=== PATIENT | female | born 1965 | race Caucasian/White ===

== ENCOUNTER 2020-04-09 06:40 | Outpatient (CLI) | payer OTHER ==
[~2020-04-09] VITALS: Ht 157 cm; Wt 57.7 kg
== END 2020-04-09 14:41 | disposition home or self-care (01) ==
LOC: PREOP 06:40
PROVIDERS: ATTEND Obstetrics & Gynecology
DX: Z01.818 Encounter for other preprocedural examination (principal)

== ENCOUNTER 2020-04-16 06:11 | Day surgery (SDC) | payer OTHER ==
[2020-04-16] VITALS (14 sets, daily range): BP systolic 118–159; BP diastolic 62–93
[~2020-04-16] VITALS: Ht 157 cm; Wt 57.7 kg
[2020-04-16] MEDS ORDERED: ceFAZolin INJECTION 1,000 MG in WATER (STERILE) FOR INJECTION 10 ML IV ONE (06:15)
[2020-04-16] MEDS ORDERED: ESTRADIOL VAGINAL CREAM 42.5 GM (ESTRACE) VG ONE (06:34)
[2020-04-16] MEDS ORDERED: LIDOCAINE/EPI 1%-1:100,000 (XYLOCAINE) 20ML ONE (06:35)
[2020-04-16] MEDS ORDERED: BUP/EPI 0.25% 1:200,000 (MARCAINE) 30 ML VIAL ONE (06:35)
[2020-04-16] MEDS: LACTATED RINGERS 1,000 ML IV PRN ×2 (06:46→08:40)
[2020-04-16] MEDS ORDERED: SEVOFLURANE (ULTANE) 15 ML INHAL SOLN ONE ×8 (06:49→10:12)
[2020-04-16] MEDS ORDERED: MIDAZOLAM 2 MG/2 ML (VERSED) VIAL ONE (06:49)
[2020-04-16] MEDS ORDERED: fentaNYL INJECTION 100 MCG/2 ML AMP ONE (06:49)
[2020-04-16] MEDS ORDERED: proPOfol 200 MG/20 ML (DIPRIVAN) VIAL IV ONE (06:50)
[2020-04-16] MEDS ORDERED: NEOSTIGMINE 3 MG/3 ML VIAL ONE (06:50)
[2020-04-16] MEDS ORDERED: LIDOCAINE PF 2% 5 ML (XYLOCAINE) VIAL ONE (06:50)
[2020-04-16] MEDS ORDERED: ROCURONIUM 10 MG/ML 5 ML SYRINGE IV ONE ×2 (06:50→09:33)
[2020-04-16] MEDS ORDERED: ONDANSETRON 4 MG/2 ML (SDV) Z0FRAN ONE ×2 (06:50→10:12)
[2020-04-16] MEDS ORDERED: GLYCOPYRROLATE 0.2 MG/ML (ROBINUL) 2 ML VIAL ONE (06:50)
[2020-04-16] MEDS ORDERED: SCOPOLAMINE 1.5 MG (TRANSDERM-SCOP) PATCH TOP ONE (07:00)
[2020-04-16] MEDS ORDERED: FAMOTIDINE 20MG/2ML IV (PEPCID) IV ONE (07:00)
[2020-04-16] MEDS ORDERED: ONDANSETRON 4 MG/2 ML (SDV) Z0FRAN IV ONE (07:00)
[2020-04-16 07:31] LABS: BASOPHILS % (AUTO) 0 % (0-10); EOSINOPHILS # (AUTO) 0.9 10^3/uL (0.0-0.3); EOSINOPHILS % (AUTO) 9 % (0-10); HEMATOCRIT 44 % (35-52); HEMOGLOBIN 14.8 G/DL (11.5-16.0); LYMPHOCYTES # (AUTO) 3.2 X 10^3 (1.0-4.0); LYMPHOCYTES % (AUTO) 32 % (12-44); MEAN CORPUSCULAR HEMOGLOBIN 30 PG (25-34); MEAN CORPUSCULAR HGB CONC 34 G/DL (32-36); MEAN CORPUSCULAR VOLUME 88 FL (80-99); MEAN PLATELET VOLUME 10.1 FL (7.4-10.4); MONOCYTES # (AUTO) 0.6 X 10^3 (0.0-1.0); MONOCYTES % (AUTO) 6 % (0-12); NEUTROPHILS # (AUTO) 5.2 X 10^3 (1.8-7.8); NEUTROPHILS % (AUTO) 52 % (42-75); PLATELET COUNT 229 10^3/uL (130-400); WHITE BLOOD COUNT 9.9 10^3/uL (4.3-11.0)
--- NOTE | 2020-04-16 07:59 | Progress Note-Pre Operative ---
Pre-Operative Progress Note H&P Reviewed The H&P was reviewed, patient examined and no changes noted. Date Seen by Provider: Apr 16, 2020 Time Seen by Provider: 07:59 Date H&P Reviewed: Apr 16, 2020 Time H&P Reviewed: 07:59 Pre-Operative Diagnosis: uterovaginal prolapse and stress urinary incontinence CAN ROSS MD Apr 16, 2020 07:59
--- NOTE | 2020-04-16 08:01 | Progress Note-Post Operative ---
Post-Operative Progess Note Surgeon (s)/Salesperson Women'S Dresses (s) Surgeon CAN ROSS MD Salesperson Women'S Dresses: Antonia Pre-Operative Diagnosis uterovaginal prolapse and stress urinary incontinence Post-Operative Diagnosis same with pathology pending Procedure & Operative Findings Date of Procedure 04/16/20 Procedure Performed/Findings total laparoscopic hysterectomy with and BSO and with A&P repairs and with enterocele repair and with Dr. Parra performing PVS and cystoscopy Anesthesia Type GETA Estimated Blood Loss Estimated blood loss (mL): 100cc Specimens/Packing Specimens Removed uterus tubes and ovaries Packing: Kerlix gauze in the vagina CAN ROSS MD Apr 16, 2020 08:01
[2020-04-16] MEDS ORDERED: IBUP-1780 PO (08:04)
[2020-04-16] MEDS ORDERED: DOCU-143 PO (08:04)
[2020-04-16] MEDS ORDERED: ESTR2TAB4 PO (08:04)
[2020-04-16] MEDS ORDERED: OXYC1TAB87 PO (08:04)
[2020-04-16] MEDS ORDERED: ESTR1TAB27 PO (08:04)
--- NOTE | 2020-04-16 08:07 | Discharge Inst-Surgical ---
Discharge Inst-Surgical Depart Medication/Instructions New, Converted or Re-Newed RX: RX on Chart Consults/Follow Up Patient Instructions: as directed Orders & Referrals Follow Up Appt: return to clinic with Dr. Tolliver on Saturday, April 18, 2020 at 930 a.m. for staple removal Call to make follow up appt. for patient in 4 weeks. Activity: Rest for 24 hours, than as tolerated. Wound Care: May remove Band-Aid tomorrow. Replace as desired. Keep incisions clean and dry. Wash daily with soap and water. Please call in RX to patient pharmacy. Diet: As tolerated-Clear Liquids only if nauseated. shower or tub bathe as desired. No driving for 24 hours, no alcoholic beverages for 24 hours, and nothing per vagina (no tampons, douching, or intercourse) for 8 weeks. Patient to return to the clinic as soon as possible for: Temperature greater than 101F, Severe Pain, Foul discharge from incision or vagina, Excessive Bleeding (more than a period). Activity Activity as Tolerated: No Diet Discharge Diet: No Restrictions CAN ROSS MD Apr 16, 2020 08:07
[2020-04-16] MEDS ORDERED: BENZOCAINE/MENTHOL (DERMOPLAST) 60 ML CAN TP PRN (08:15)
[2020-04-16] MEDS ORDERED: MEPERIDINE (DEMEROL) INJ 100 MG/ML IM PRN (08:15)
[2020-04-16] MEDS ORDERED: PROMETHAZINE INJ 25 MG/ML (PHENERGAN) AMP IM PRN (08:15)
[2020-04-16] MEDS ORDERED: ONDANSETRON 4 MG/2 ML (SDV) Z0FRAN IVP PRN ×2 (08:15→10:15)
[2020-04-16] MEDS ORDERED: oxyCODONE/APAP 5/325MG (PERCOCET 5) TABLET PO PRN (08:15)
[2020-04-16] MEDS ORDERED: ESTROGENS CONJ INJECTION 25 MG in WATER (STERILE) FOR INJECTION 5 ML IV ONE (08:15)
--- NOTE | 2020-04-16 08:48 | Progress Note-Post Operative ---
Post-Operative Progess Note Surgeon (s)/Education Program Associate (s) Surgeon CLOTILDE DOBBS MD Education Program Associate: MD VANDANA Pre-Operative Diagnosis ROCÍO Post-Operative Diagnosis SAME AND DUS Procedure & Operative Findings Date of Procedure 04/16/20 Procedure Performed/Findings PVS, UD AND CYSTOSCOPY Anesthesia Type GENERAL Estimated Blood Loss Estimated blood loss (mL): NEGLIGIBLE Specimens/Packing Specimens Removed NONE Packing: Kerlix gauze in the vagina CLOTILDE DOBBS MD Apr 16, 2020 08:48
[2020-04-16] MEDS ORDERED: ESTROGENS CONJ IV 25 MG/5 ML (PREMARIN) VIAL ONE (09:38)
[2020-04-16] MEDS ORDERED: WATER (STERILE) FOR INJECTION 10 ML ONE (09:38)
[2020-04-16] MEDS ORDERED: HYDROmorphone 2 MG/ML VIAL (DILAUDID) ONE (09:50)
[2020-04-16] MEDS ORDERED: KETOROLAC 30 MG/ML VIAL ONE (10:09)
[2020-04-16] MEDS ORDERED: HYDROmorphone 2 MG/ML VIAL (DILAUDID) IV ONE (10:15)
[2020-04-16] MEDS ORDERED: KETOROLAC 30 MG/ML VIAL IVP ONE (10:15)
[2020-04-16] MEDS: KETOROLAC 30 MG/ML VIAL IVP SCH ×3 (10:17→21:54)
--- NOTE | 2020-04-16 11:10 | NUR ---
LEEANN MONTGOMERY admitted to room 3306-1 VIA PT BED ACC BY TIANA ERWIN CLAY PUDDLER AFTER A ROBOTIC ASSISTED TOTAL LAPAROSCOPIC HYSTERECTOMY, BILATERAL SALPINGO-OOPHORECTOMY, ANTERIOR AND POSTERIOR REPAIR WITH ENTEROCELE REPAIR BY DR. ROSS AND PUBOVAGINAL SLING, CYSTOSCOPY, AND URETHRAL DILATION BY DR. DOBBS.LEEANN MONTGOMERY introduced to surroundings, call light, bed controls, phone, TV, temperature control, lights, meal times, smoking policy, visitor policy, side rail policy, bathrooms and showers. Patient Rights given to patient in the handbook.
--- NOTE | 2020-04-16 11:15 | NUR ---
ASSESSMENT PERFORMED. VSS. PT VERY DROWSY AND DENIES PAIN. STATES HAS NAUSEA AND DOESN'T WANT TO MOVE. IV PLACED ON PUMP WITH NEW TUBING. BRUISING NOTED AT SITE. HARMAN PATENT TO DD WITH CLOUDY YELLOW URINE. LAP SITES X3 D/I. BANDAID AT UMBILICUS THAT IS NOT A LAP SITE BUT UTILIZED TO INJECT AIR. SPOUSE AT BEDSIDE. ORIENTED TO CALL LIGHT AND MENU. PT TOO DROWSY TO ABSORB INSTRUCTIONS AT THIS TIME. THIGH HI SCDS ON BILATERALLY. SIDE RAILS UP X4. CALL LIGHT PLACED WITHIN REACH.
[2020-04-16] MEDS ORDERED: D5 LR IV SOLUTION 1,000 ML IV ONE (11:27)
--- NOTE | 2020-04-16 11:30 | NUR ---
VAGINAL PACKING INTACT. NO BLEEDING ON TAIL OF PACK. V-PAD DRY. PT SAT UP AND STARTED DRY HEAVING.
--- NOTE | 2020-04-16 11:37 | NUR ---
ZOFRAN [address] ORDER. NO EMESIS BUT DRY HEAVES. WARM BLANKET GIVEN. EXTRA PILLOWS. PT TURNING SELF FROM SIDE TO SIDE.
--- NOTE | 2020-04-16 11:39 | OPERATIVE REPORT ---
DATE OF SERVICE: 04/16/2020 PREOPERATIVE DIAGNOSIS: On my part, stress urinary incontinence. POSTOPERATIVE DIAGNOSES: On my part, stress urinary incontinence and distal urethral stenosis. OPERATION PERFORMED: Pubovaginal sling, urethral dilatation, and cystoscopy. SURGEON: Clotilde Dobbs MD SPECIAL INVESTIGATOR: Jonas Vasques MD ANESTHESIA: General. COMPLICATIONS: None. DESCRIPTION OF PROCEDURE: After Dr. Vasques performed the first part of his surgery that he will dictate and the catheter was inserted, draining clear urine, I went ahead and passed the device on both sides using the described technique. The sling was sitting nicely under the mid urethra with no tension, no twist and passage of a hemostat easily between it and the underlying tissue. I inserted the cystoscope. There was resistance at just proximal to the urethra. I went ahead and dilated that little stricture to #26 easily and the scope was passed easily after that. Cystoscopy was negative. No foreign bodies. Ureteric orifices normal with clear efflux. The sling sitting under the mid urethra. I left the bladder at least half full to remove the cystoscope and performed a Valsalva maneuver manually, it was negative. I went ahead and reinserted the catheter, draining clear fluid. Estimated blood loss negligible and the patient tolerated the procedure and anesthesia well and Dr. Vasques proceeded with rest of his surgery that he will dictate. Job ID: [id number] DocumentID: [id number] Dictated Date: 04/16/2020 09:39:23 Refrigeration Lead Date: 04/16/2020 11:38:58 Dictated By: CLOTILDE DOBBS MD
[2020-04-16] MEDS: D5 LR IV SOLUTION 1,000 ML IV SCH ×2 (12:14→18:42)
--- NOTE | 2020-04-16 13:20 | NUR ---
IV FLUIDS INCREASED FOR FLUID BOLUS R/T DECREASED URINE OUTPUT. PT C/O FEELING LIKE SHE NEEDS TO URINATE. INFORMED OF PACKING MOST LIKELY CAUSING THAT SENSATION.
--- NOTE | 2020-04-16 13:21 | OPERATIVE REPORT ---
DATE OF SERVICE: 04/16/2020 PREOPERATIVE DIAGNOSES: Uterovaginal prolapse and stress urinary incontinence. POSTOPERATIVE DIAGNOSES: Uterovaginal prolapse and stress urinary incontinence. OPERATIVE PROCEDURE: Total laparoscopic hysterectomy with bilateral salpingo-oophorectomy as well as anterior and posterior repairs with enterocele repair and with Dr. Azar performing a pubovaginal sling and cystoscopy as well as a urethral dilation. OPERATIVE DESCRIPTION: With the patient in the supine position under satisfactory general anesthesia, she was repositioned in the dorsal lithotomy position in the [facility] and then prepped and draped in the usual fashion for abdominal and vaginal surgery. Weighted speculum was placed in the posterior fornix of vagina, cervix exposed and grasped anteriorly with single tooth tenaculum. The cervix was actually prolapsed to 2 cm outside the introitus. The cervix was stabilized with a tenaculum. Uterus was sounded to 9 cm with uterine sound. The cervix was serially dilated with Miguel Ángel dilators to accommodate a Ana II manipulator, which was placed using a 6 mm x 8 cm uterine probe and a 30 mm colpotomy ring. Sutures of #1 Vicryl placed at 3 and 9 o'clock position of the cervix to affix the uterus to the manipulator. The uterus was reduced back up into the pelvis with the manipulator. Marquez catheter was placed in the urinary bladder. Tenaculum and speculum were removed and the patient was brought into low dorsal lithotomy position. A 12 mm incision was made 7 cm superior to the umbilicus. Veress needle was placed through that incision. The first attempt with the Veress needle was unsuccessful, so a stab wound was made just superior to the umbilicus. Veress needle was placed there easily and the abdomen insufflated with 2.4 liters of carbon dioxide. A 12 mm Optiview laparoscopic port was then placed through the supraumbilical incision. The abdominal wall was transilluminated and ports of 8 mm were placed through incisions of those sizes 9 cm lateral to the umbilicus, approximately 3-4 cm superior to the umbilicus. All the port sites were infiltrated with 0.25% Marcaine with epinephrine before incision and port placement. The patient was placed in Trendelenburg. The ? Florence column was advanced on the patient and docked. Operative instruments were placed and I retired to the da Florence console. At the console, the pelvis was examined. The uterus was normal in appearance and freely mobile. There was evidence of tubal sterilization bilaterally. The ovaries were atretic appearing. Both ovaries were seemed to peristalse and were well away from the IP ligaments of the uterus. The appendix was identified. It was a normal vermiform appendix. It appeared to be some endometriosis in the ovarian fossae bilaterally. The procedure was initiated by elevating the right tube and ovary and then clamping, cauterizing, dividing the IP ligament. This was continued stepwise across the mesovarium on to the round ligament, the broad ligament and finally down on the cardinal ligament. Same procedure performed on the left, allowing for eventual removal of both tubes and ovaries with the uterus. The anterior lower uterine segment peritoneum was exposed and divided using monopolar kandis in place of the vessel sealer on the right. The bladder was carefully dissected down off the lower uterine segment. The colpotomy incision was then started at 12 o'clock position. That incision was continued circumferentially until the entire colpotomy ring was exposed. This freed the uterus with tubes and ovaries still attached, which was extracted through the vagina. The vaginal cuff was closed with a single suture of V-Loc barbed suture starting from the right angle, continuing in a running and partially running locked manner to the left angle taking care to ensuring inclusion of the uterine vessel pedicles bilaterally. Hemostasis was complete. The bladder peritoneum was reapproximated with the final stitch of the suture with no bleeding, less than 10 mL of blood loss. At this point, the laparoscopic portion of the procedure was halted. The operative instruments were removed under direct vision as were the ports. The abdomen was evacuated of insufflating gas in the process of removing the ports. The skin incisions were stapled after closing the fascia at the supraumbilical incision with [id number]-lv-[id number] suture of 2-0 Vicryl. The patient was brought into low dorsal lithotomy position and the Marquez catheter was removed. Weighted speculum placed in posterior fornix of vagina. The anterior vaginal wall was grasped with two Roc clamps. Vaginal wall was opened in the midline with Metzenbaum scissors. That opening was continued to from 1.5 cm from the urethral meatus to almost the apex of the vagina. The bladder wall was carefully dissected off the muscularis of the vagina back to pubic rami bilaterally. Endopelvic fascia and bladder wall were plicated with 2-0 Vicryl sutures, elevating the bladder and lengthening the urethra. At this point, Dr. Azar assumed care of the patient. I remained to assist. Dr. Azar performed a pubovaginal sling and a cystoscopy. Prior to the cystoscopy, he performed a urethral dilation because were seemed to be a little bit of stenosis of the urethra. He will dictate his portion of the procedure. On completion of his portion of the procedure, I resumed care of the patient, resected redundant anterior vaginal muscularis mucosa and closed the vaginal wall with a running locked suture of 3-0 Vicryl Rapide. Good hemostasis was achieved and good support was evident. Posterior repair was affected by placing Roc clamps on the perineum and the hymenal ring at the 5 and 7 o'clock position and inverted triangle of skin was removed from the perineal body and upright triangle was removed from the posterior vaginal floor. The rectovaginal space was entered in sharply and dissected bluntly to the apex of the vagina where it was explored where an enterocele small one. The enterocele was reduced and then plicated with two 2-0 Vicryl sutures in a pursestring fashion. With the enterocele reduced, the rectovaginal space was obliterated with additional sutures of 2-0 Vicryl and the perineal body was restored with sutures of 2-0 Vicryl. The redundant posterior vaginal muscularis mucosa was resected and the vaginal wall was closed with running locked suture of 3-0 Vicryl. That closure was continued past the hymenal ring and back down onto the perineal body and then back up to the hymenal ring where the suture was tied. Digital rectal exam confirmed no stricture or stenosis of the rectum and no sutures into or through the rectal mucosa. The vaginal vault was examined for hemostasis that being complete, the vagina was filled with Estrace vaginal cream and a pack of Kerlix gauze was placed. The Marquez catheter was left to dependent drainage, it was draining clear yellow urine. Sponge and needle counts were correct. Blood loss was minimal for the hysterectomy and around 100 mL for the anterior and posterior repairs. The patient tolerated the procedure well and was uneventfully awakened from her general anesthesia and transferred to the recovery room in stable condition. Job ID: [id number] DocumentID: [id number] Dictated Date: 04/16/2020 10:08:16 Document Preparation Specialist Date: 04/16/2020 13:20:40 Dictated By: CAN ROSS MD
--- NOTE | 2020-04-16 13:35 | Anesthesia-General Post-Op ---
General Patient Condition Mental Status/LOC: Same as Preop Cardiovascular: Satisfactory Nausea/Vomiting: Absent Respiratory: Satisfactory Pain: Controlled Complications: Absent Post Op Complications Complications None Follow Up Care/Instructions Patient Instructions None needed. Anesthesia/Patient Condition Patient Condition Patient is doing well, no complaints, stable vital signs, no apparent adverse anesthesia problems. No complications reported per nursing. GEN DICKEY CRNA Apr 16, 2020 13:35
--- NOTE | 2020-04-16 13:49 | NUR ---
DR. ROSS NOTIFIED OF PT'S CONTINUES NAUSEA. ORDERED TO REPEAT ZOFRAN.
[2020-04-16] MEDS ORDERED: ONDANSETRON 4 MG/2 ML (SDV) Z0FRAN IVP ONE (14:00)
--- NOTE | 2020-04-16 14:06 | NUR ---
ZOFRAN 12 MG IVP FOR C/O NAUSEA. PT HAD ANOTHER EPISODE OF DRY HEAVING. SPOUSE AT BEDSIDE. TAKING SIPS OF SPRITE BUT CONTINUES TO FALL BACK ASLEEP. FLUID BOLUS COMPLETE. IV DECREASED TO 125MLS/HR/PUMP. SITE BRUISED. NO EDEMA.
--- NOTE | 2020-04-16 16:30 | NUR ---
CIRCLED DRAINAGE ON MEDIAL LAP SITE. TAIL OF VAGINAL PACK WITH RED BLOOD BUT UNCHANGED SINCE FIRST NOTICED IT.
--- NOTE | 2020-04-16 17:00 | NUR ---
NOTIFIED DER. ROSS OF PT REFUSING PAIN MEDICATION AND WANTING SOMETHING DIFFERENT FOR NAUSEA. INFORMED OF TAIL OF VAGINAL PACKING NOW HAVING RED BLOOD AFTER DRY HEAVING.
--- NOTE | 2020-04-16 17:12 | NUR ---
PHENERGAN 25 MG SLOW IVP FOR C/O NAUSEA.
[2020-04-16] MEDS ORDERED: PROMETHAZINE INJ 25 MG/ML (PHENERGAN) AMP IVP ONE (17:15)
--- NOTE | 2020-04-16 17:30 | NUR ---
SPOUSE LEFT. PT SLEEPING.
--- NOTE | 2020-04-16 18:10 | NUR ---
GOOD URINE OUTPUT. PT ASLEEP WHEN ENTERED ROOM BUT STATES SHE ATE A CRACKER AND SOME SPRITE BUT NOT WANTING TO EAT AT THIS TIME. SPO2 98%.
[2020-04-17] VITALS: BP 117/65
[2020-04-17] MEDS: D5 LR IV SOLUTION 1,000 ML IV SCH (00:22)
[2020-04-17] MEDS: KETOROLAC 30 MG/ML VIAL IVP SCH (03:45)
[2020-04-17 04:00] VITALS: BP 110/55
--- NOTE | 2020-04-17 05:39 | NUR ---
HARMAN AND VAGINAL PACKING REMOVED AT THIS TIME. PATIENT TOLERATED WELL. PATIENT HAS NO COMPLAINTS AT THIS TIME.
[2020-04-17 07:50] VITALS: BP 108/63
[2020-04-17] MEDS ORDERED: ESTRADIOL 1 MG TAB (ESTRACE) PO SCH (09:00)
[2020-04-17] MEDS ORDERED: DOCUSATE SODIUM 100 MG (COLACE) CAP PO SCH (09:00)
--- NOTE | 2020-04-17 09:00 | Progress Note ---
Standard Progress Note Progress Notes/Assess & Plan Date Seen by a Provider: Apr 17, 2020 Time Seen by a Provider: 08:59 Progress/Assessment & Plan patient without complaint. She is ambulating, she reports that she hasn't voided since the catheter was removed. She has good pain control. She has no nausea or vomiting. She did have issues with nausea last evening but that has resolved. Vital Signs Date Time Temp Pulse Resp B/P (MAP) Pulse Ox O2 Delivery O2 Flow Rate FiO2 04/17/20 04:00 36.4 57 16 110/55 (73) 98 Room Air 04/17/20 00:00 36.3 68 18 117/65 (82) 98 Room Air 04/16/20 21:00 98 Room Air 04/16/20 20:00 36.8 62 16 141/72 (95) 98 Room Air 04/16/20 18:10 98 Room Air 04/16/20 16:15 36.9 82 16 143/67 (92) 98 Room Air 04/16/20 13:10 36.5 83 16 129/74 (92) 96 Room Air 04/16/20 11:45 60 16 129/62 (84) 96 Room Air 04/16/20 11:15 36.4 58 16 159/77 (104) 99 Room Air 04/16/20 11:10 36.2 16 144/76 (98) 96 Room Air 04/16/20 11:10 Room Air 04/16/20 11:00 16 144/76 (98) 97 Room Air 04/16/20 11:00 Room Air 04/16/20 10:50 20 140/73 (95) 96 Room Air 04/16/20 10:45 Room Air 04/16/20 10:40 20 158/82 (107) 98 OxyMask 4 04/16/20 10:30 20 156/84 (108) 100 OxyMask 5 04/16/20 10:30 OxyMask 5 04/16/20 10:20 20 148/82 (104) 100 OxyMask 5 04/16/20 10:15 OxyMask 6 04/16/20 10:10 20 118/73 (88) 100 OxyMask 6 04/16/20 10:07 OxyMask 10 04/16/20 10:07 36.2 16 118/72 (87) 100 OxyMask 10 I & O 04/17/20 07:00 Intake Total 4650 ml Output Total 2575 ml Balance 2075 ml vital signs are stable. Patient is afebrile. The abdomen is benign. Extremities show no clubbing cyanosis. There is no Homans sign. Assessment and plan postoperative day number 1 doing well. Plan is for routine convalescence care with discharge home on demonstration of adequate bladder function Final Diagnosis uterovaginal prolapse and stress urinary incontinence CAN ROSS MD Apr 17, 2020 09:00
[2020-04-17] MEDS ORDERED: IBUPROFEN 800 MG (MOTRIN) TAB PO SCH (12:00)
== END 2020-04-17 10:40 | disposition home or self-care (01) ==
LOC: SDC 06:11 → WS 11:10 → SDC 04-17 10:40
PROVIDERS: ATTEND Obstetrics & Gynecology
DX: N81.4 Uterovaginal prolapse, unspecified (principal); N84.0 Polyp of corpus uteri; N39.3 Stress incontinence (female) (male); N35.92 Unspecified urethral stricture, female; N94.89 Other specified conditions associated with female genital organs and menstrual cycle; N83.8 Other noninflammatory disorders of ovary, fallopian tube and broad ligament; N83.312 Acquired atrophy of left ovary; N83.311 Acquired atrophy of right ovary; D27.0 Benign neoplasm of right ovary; K21.9 Gastro-esophageal reflux disease without esophagitis; F17.210 Nicotine dependence, cigarettes, uncomplicated; Z11.2 Encounter for screening for other bacterial diseases; Z88.5 Allergy status to narcotic agent
CPT/HCPCS: 52281; 57265; 57288; 58571; 84703; 85025; 86850; 86900; 86901; 87081; 94664; C1771; 36415